=== PATIENT | male | born 2000 | race Caucasian/White ===

== ENCOUNTER 2023-12-13 04:51 | Emergency (ER) | payer SELFPAY ==
[~2023-12-13] VITALS: Ht 170.2 cm; Wt 67.3 kg
[2023-12-13 04:56] VITALS: TEMP 97.9
[2023-12-13 05:50] VITALS: BP 150/79; PULSE 108
== END 2023-12-13 05:50 | disposition home or self-care (01) ==
LOC: COL.ER 04:51
DX: S61.211A Laceration without foreign body of left index finger without damage to nail, initial encounter (principal); W26.9XXA Contact with unspecified sharp object(s), initial encounter; Y92.009 Unspecified place in unspecified non-institutional (private) residence as the place of occurrence of the external cause